=== PATIENT | female | born 1995 | race Hispanic/Latino ===

== ENCOUNTER 2024-09-09 10:15 | Outpatient (CLI) | payer OTHER | END 2024-09-09 10:16 | disposition home or self-care (01) | LOC: BICULT 10:15 | PROVIDERS: ATTEND Family Medicine | DX: Z34.83 Encounter for supervision of other normal pregnancy, third trimester (principal); Z3A.30 30 weeks gestation of pregnancy | CPT/HCPCS: 76805 ==